=== PATIENT | female | born 1955 | race African-American/Black ===

== ENCOUNTER 2021-07-18 09:48 | Emergency (ER) | payer BC, OTHER ==
[~2021-07-18] VITALS: Ht 170.2 cm; Wt 79.0 kg
[2021-07-18 10:54] LABS: CLARITY URINE CLOUDY (CLEAR); COLOR URINE DK YELLOW (YELLOW); KETONES URINE 1+ (NEGATIVE); LEUKOCYTE ESTERASE URINE NEGATIVE (NEGATIVE); NITRITE URINE NEGATIVE (NEGATIVE); OCCULT BLOOD URINE 1+ (NEGATIVE); PH URINE 5.5 (4.5-8.0); PROTEIN URINE 1+ (NEGATIVE); SPECIFIC GRAVITY URINE 1.025 (1.005-1.030)
[2021-07-18 11:20] LABS: BASOPHILS % 0.2 % (0.0-2.0); HEMATOCRIT. 44.3 % (36.0-48.0); HEMOGLOBIN. 14.4 g/dL (12.0-16.0); LYMPHOCYTES % 11.2 % (20.0-50.0); MEAN CORPUSCULAR VOLUME 92.1 fL (81.0-99.0); MEAN PLATELET VOLUME 8.5 fl (7.4-10.4); MONOCYTES % 6.9 % (2.0-8.0); NEUTROPHILS % 81.7 % (40.0-76.0); PLATELET 260 x1000/uL (130-400); RED BLOOD CELL COUNT 4.81 mill/uL (4.2-5.4); RED CELL DISTRIBUTION WIDTH 16.6 % (11.6-14.6)
[2021-07-18 11:28] LABS: CHLORIDE 102 mEq/L (98-107)
[2021-07-18 13:06] VITALS: BP 130/64
== END 2021-07-18 13:07 | disposition home or self-care (01) ==
LOC: ER 10:13
DX: R55 Syncope and collapse (principal); R11.2 Nausea with vomiting, unspecified; I10 Essential (primary) hypertension; I45.10 Unspecified right bundle-branch block; Z91.81 History of falling
CPT/HCPCS: 36415; 71045; 80053; 81003; 84484; 85025; 93005; 99285

== ENCOUNTER 2022-05-01 08:00 | Emergency (ER) | payer BC ==
[~2022-05-01] VITALS: Ht 170.2 cm; Wt 77.0 kg
[2022-05-01] MEDS ORDERED: CEPH500T MT (10:00)
[2022-05-01 10:37] VITALS: BP 147/74
== END 2022-05-01 10:38 | disposition home or self-care (01) ==
LOC: ER 08:02
DX: S80.862A Insect bite (nonvenomous), left lower leg, initial encounter (principal); L03.116 Cellulitis of left lower limb; M79.672 Pain in left foot; W57.XXXA Bitten or stung by nonvenomous insect and other nonvenomous arthropods, initial encounter; Y93.89 Activity, other specified; Y92.89 Other specified places as the place of occurrence of the external cause
CPT/HCPCS: 99283